=== PATIENT | male | born 1955 | race Caucasian/White ===

== ENCOUNTER → 2023-07-28 | Outpatient (CLI) | payer OTHER, SELFPAY | END | disposition home or self-care (01) | PROVIDERS: PCP Family Medicine; Referring Provider Internal Medicine Critical Care Medicine; Visit Provider Internal Medicine Critical Care Medicine | DX: R05.3 Chronic cough (principal) | CPT/HCPCS: 94060; 94726; 94729 ==

== ENCOUNTER → 2023-09-01 | Outpatient (CLI) | payer OTHER, SELFPAY ==
--- NOTE | 2023-09-01 12:34 | ECHOD_ITS ---
Reason For Study: Dyspnea/SOB Procedure This was a 2D Doppler, Color Flow transthoracic echocardiogram. Exam performed in department. Left Ventricle Normal LV size. The estimated ejection fraction is 65 %. No evidence for diastolic dysfunction. No regional wall motion abnormalities noted. Right Ventricle Normal RV size. Normal systolic function. Atria The left and right atria are normal. No doppler evidence for ASD. Mitral Valve There is no mitral valve stenosis. Trivial mitral valve insufficiency. Tricuspid Valve There is no tricuspid stenosis. Trivial tricuspid valve insufficiency. Pulmonary artery systolic pressure is 30 mmHg. Aortic Valve Trisinus/trileaflet aortic valve. There is no aortic stenosis. No aortic valve insufficiency. Pulmonic Valve There is no pulmonic valvular stenosis. Trivial pulmonic valve insufficiency. Great Vessels Normal aortic root. Pericardium/Pleural No pericardial effusion. MMode/2D Measurements & Calculations LVIDd: 4.3 cm IVSd: 1.6 cm Ao root diam: 3.7 cm LVIDs: 3.0 cm LVPWd: 1.3 cm LA dimension: 4.1 cm RVDd: 3.6 cm FS: 30.1 % LAV(MOD-bp): 61.2 ml LVAd ap4: 32.1 cm2 SV(MOD-sp4): 61.5 ml LAV(MOD-bp) Indexed: 27.3 ml/m2 LVLd ap4: 8.0 cm LAV(MOD-sp2): 41.6 ml EDV(MOD-sp4): 106.5 ml LAV(MOD-sp4): 62.4 ml EDV(sp4-el): 108.8 ml LVAs ap4: 18.1 cm2 LVLs ap4: 6.6 cm ESV(MOD-sp4): 44.9 ml ESV(sp4-el): 42.0 ml EF(MOD-sp4): 57.8 % EF(sp4-el): 61.4 % SV(sp4-el): 66.8 ml LA A4 area: 22.2 cm2 RA A4 area: 18.3 cm2 TAPSE: 2.1 cm Time Measurements MV dec time: 0.16 sec Doppler Measurements & Calculations MV E max raymundo: 83.2 cm/sec Lat Peak E' Raymundo: 12.8 cm/sec Med Peak E' Raymundo: 11.1 cm/sec MV A max raymundo: 89.8 cm/sec E/E' lat: 6.5 E/E' med: 7.5 MV E/A: 0.93 MV V2 max: 96.4 cm/sec MV P1/2t max raymundo: 92.3 cm/sec Ao V2 max: 133.6 cm/sec MV max P.7 mmHg MV P1/2t: 54.4 msec Ao max P.1 mmHg MV V2 mean: 49.0 cm/sec MV dec slope: 497.6 cm/sec2 Ao V2 mean: 93.4 cm/sec MV mean P.2 mmHg Ao mean P.9 mmHg MV V2 VTI: 29.0 cm MVA(P1/2t): 4.0 cm2 Ao V2 VTI: 27.5 cm AV (velocity ratio): 0.84 LV V1 max: 100.2 cm/sec PA V2 max: 110.5 cm/sec TR max raymundo: 245.2 cm/sec LV V1 max P.0 mmHg PA V2 mean: 69.6 cm/sec TR max P.1 mmHg LV V1 mean P.0 mmHg LV V1 mean: 66.6 cm/sec LV V1 VTI: 23.0 cm ECHO/Echo Complete Interpretation Summary The estimated ejection fraction is 65 %. No evidence for diastolic dysfunction. Trivial mitral valve insufficiency. Ordering Physician: Floyd Tovar Referring Physician: Floyd Tovar Performed By: Xander Nelson RCS
== END | disposition home or self-care (01) ==
LOC: CVS 12:28
PROVIDERS: PCP Family Medicine; Referring Provider Internal Medicine Critical Care Medicine; Visit Provider Internal Medicine Critical Care Medicine
DX: G47.33 Obstructive sleep apnea (adult) (pediatric) (principal); R06.02 Shortness of breath
CPT/HCPCS: 93306